=== PATIENT | female | born 1990 | race Caucasian/White ===

== ENCOUNTER 2020-07-20 12:48 | Emergency (ER) | payer BC ==
[~2020-07-20] VITALS: Ht 175.3 cm; Wt 102.1 kg
[~2020-07-20 12:48] MED LIST: ABILIFY5 MG; ALEVE220 MG PO; AUGMENTIN 875-1 EACH PO; CYCLOBENZAPRINE10 MG PO; IBUPROFEN600 MG PO; NORCO 5-325 TA1 EACH PO
[2020-07-20] MEDS ORDERED: OFLOXACIN5 M1 OP (16:27)
== END 2020-07-20 16:34 | disposition home or self-care (01) ==
LOC: ED 12:48
DX: T16.1XXA Foreign body in right ear, initial encounter (principal); F17.200 Nicotine dependence, unspecified, uncomplicated
CPT/HCPCS: 99282